=== PATIENT | male | born 1965 | race American Indian/Alaskan Native ===

== ENCOUNTER 2017-10-09 11:44 | Emergency (ER) | payer SELFPAY ==
[2017-10-09 11:58] VITALS: BP 148/108; PULSE 100; RESP 20; TEMP 98.9; O2SAT 100
--- NOTE | 2017-10-09 13:06 | C.PDOC ---
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 Patient states he saw things crawling in the hotel room. He admits to smoking marijuana and also smoking cigarette that "may have been dipped in something". Patient denies chest pain, SOB, nausea, vomiting, SI/HI. Time Seen by Provider: 10/09/17 12:13 Chief Complaint (Nursing): Substance Abuse History Per: Patient History/Exam Limitations: no limitations Onset/Duration Of Symptoms: Sudden Onset (SYSTEMS DESIGN ENGINEER) Current Symptoms Are (Timing): Still Present Suicide/Self Injury Attempted (Context): None Modifying Factor(s): Marijuana, Other (cigarette "dipped in something") Past Medical History Reviewed: Historical Data, Nursing Documentation, Vital Signs Vital Signs: Last Vital Signs Temp 98.9 F 10/09/17 11:56 Pulse 100 H 10/09/17 11:56 Resp 20 10/09/17 11:56 BP 148/108 H 10/09/17 11:56 Pulse Ox 100 10/09/17 13:10 - Medical History PMH: No Chronic Diseases Family History: States: No Known Family Hx - Social History Hx Alcohol Use: No Hx Substance Use: No Review Of Systems Except As Marked, All Systems Reviewed And Found Negative. Cardiovascular: Negative for: Chest Pain Respiratory: Negative for: Shortness of Breath Gastrointestinal: Negative for: Nausea, Vomiting Neurological: Negative for: Headache, Dizziness Psych: Positive for: Other (visual hallucinations). Negative for: Anxiety, Depression, Suicidal ideation Physical Exam - Physical Exam Appears: Well, Non-toxic, No Acute Distress, Other ((+) speaking in pressured speech, bizarre affect) Skin: Warm, Dry Eye(s): bilateral: Normal Inspection, PERRL, EOMI Oral Mucosa: Moist Cardiovascular: Rhythm Regular Respiratory: Normal Breath Sounds, No Rales, No Rhonchi, No Stridor, No Wheezing Extremity: Normal ROM, No Swelling Neurological/Psych: Oriented x3, Normal Speech, Normal Cognition Gait: Steady ED Course And Treatment O2 Sat by Pulse Oximetry: 100 (RA) Pulse Ox Interpretation: Normal Progress Note: Patient is AAOx3, ambulating normally in ED. He denies SI/HI - will discharge. Disposition - Disposition Disposition: HOME/ ROUTINE Disposition Time: 13:10 Condition: STABLE Forms: [facility] (Liberian) - Clinical Impression Clinical Impression: Substance abuse, Visual hallucinations - Scribe Statement The provider has reviewed the documentation as recorded by the Kayeibe Kathleen Corona Provider Attestation: All medical record entries made by the Scribe were at my direction and personally dictated by me. I have reviewed the chart and agree that the record accurately reflects my personal performance of the history, physical exam, medical decision making, and the department course for this patient. I have also personally directed, reviewed, and agree with the discharge instructions and disposition.
== END 2017-10-09 13:11 | disposition home or self-care (01) ==
LOC: C.ER 11:44
DX: F19.10 Other psychoactive substance abuse, uncomplicated (principal); R44.1 Visual hallucinations